=== PATIENT | female | born 1945 | race Caucasian/White ===

== ENCOUNTER 2016-10-13 12:41 | Observation (INO) | payer OTHER, BC ==
[~2016-10-13] VITALS: Ht 152.4 cm; Wt 75.0 kg
[~2016-10-13 12:41] MED LIST: ASPIR-TRIN325 M1 PO; CELEXA20 MG PO; DIOVAN80 MG PO; ECOTRIN81 M1 PO; Levothroid,Synthroid PO; NAPROSYN500 MG PO; NEXIUM40 MG PO; NORCO 5/3251 TABLET PO; PLAVIX75 MG PO; PRAVASTATIN SOD40 MG PO; PREMARIN0.45 MG PO; PROTONIX40 MG PO; RANEXA500 MG PO; SYNTHROID25 MCG PO; SYNTHROID50 MCG PO; TOPROL XL50 MG PO; ZOCOR5 MG PO; Zocor PO
[2016-10-13 13:21] LABS: HEMATOCRIT 44.1 % (36.0-46.0); MCH 29.6 PG (29.0-34.0); MCHC 33.3 G/DL (30.0-36.0); MCV 88.9 FL (83-99); MEAN PLAT.VOLUME 9.3 uM^3 (9.5-12.4); NRBC (%) 0.4 /100 WBC (0-0); PLATELET COUNT 195 K/uL (156-360); RBC DIS.WIDTH-CV 12.5 % (11.8-14.6); RBC DIS.WIDTH-SD 40.5 % (39-53); RED BLOOD COUNT 4.96 M/uL (3.80-5.20); WHITE BLOOD COUNT 4.9 K/uL (4.1-10.2)
[2016-10-13 13:29] LABS: CHLORIDE 107 mEq/L (99-109); POTASSIUM 4.7 mEq/L (3.7-5.4); SODIUM 142 mEq/L (136-147)
[2016-10-13 13:31] LABS: GLUCOSE 107 mg/dL (70-99)
[2016-10-13 13:32] LABS: ANION GAP 10 MEQ/L (2-14)
[2016-10-13 13:35] LABS: GFR ESTIMATE (CALCULATED) > 59 mL/min/
[2016-10-13 13:36] LABS: UREA NITROGEN (BUN) 17 mg/dL (9-23)
[2016-10-13 13:39] LABS: TROP-I INTERPRETATION NEGATIVE; TROPONIN-I < 0.01 ng/mL (0.0-0.30)
[2016-10-13] MEDS ORDERED: DIOVAN80 MG PO (14:08)
[2016-10-13] MEDS ORDERED: LIPITOR80 MG PO (14:08)
[2016-10-13] MEDS ORDERED: BYSTOLIC5 MG PO (14:09)
[2016-10-13] MEDS ORDERED: LEVO-T75 MCG PO (15:02)
[2016-10-13] MEDS ORDERED: PLAVIX75 MG PO (15:05)
[2016-10-13] MEDS ORDERED: ASPIR 8181 M1 PO (15:13)
[2016-10-13 17:13] VITALS: BP 133/62
[2016-10-13 18:09] LABS: TROP-I INTERPRETATION NEGATIVE; TROPONIN-I < 0.01 ng/mL (0.0-0.30)
[2016-10-13 20:00] VITALS: BP 120/56
[2016-10-13 23:17] LABS: TROP-I INTERPRETATION NEGATIVE; TROPONIN-I < 0.01 ng/mL (0.0-0.30)
[2016-10-14] VITALS: BP 126/71
[2016-10-14 04:30] VITALS: BP 123/59
[2016-10-14 09:50] VITALS: BP 110/53
[2016-10-14] MEDS ORDERED: NITROSTAT0.4 MG SL (10:10)
[2016-10-14] MEDS ORDERED: IMDUR30 MG PO (10:11)
== END 2016-10-14 11:54 | disposition home or self-care (01) ==
LOC: EME 12:41 → EDOF 15:11 → 5WEST 15:11 → EDOF 15:11 → 5WEST 17:10
PROVIDERS: Internal Medicine
DX: R07.89 Other chest pain (principal); I25.10 Atherosclerotic heart disease of native coronary artery without angina pectoris; I10 Essential (primary) hypertension; E78.5 Hyperlipidemia, unspecified; E03.9 Hypothyroidism, unspecified; Z95.5 Presence of coronary angioplasty implant and graft
CPT/HCPCS: 71020; 80048; 84484; 85027; 93005; 99281; 99285; G0378